=== PATIENT | male | born 1935 | race Caucasian/White ===

== ENCOUNTER 2016-10-20 12:03 | Day surgery (SDC) | payer OTHER, MEDICARE ==
[~2016-10-20] VITALS: Ht 167.6 cm; Wt 79.8 kg
[~2016-10-20 12:03] MED LIST: AMOXICILLIN500 MG PO; ASCORBIC ACID500 M3 PO; ASPIR-LOW81 MG PO; ASPIRIN325 MG PO; ATENOLOL100 MG PO; BENICAR HCT 401 EACH PO; BRILINTA90 MG PO; DIOVAN HCT 31 TABLET PO; GLUCOPHAGE1000 MG PO; GLUCOTROL XL10 MG PO; HYDROCODON-ACE1 EA11 PO; METFORMIN HCL1000 MG PO; MULTIVITAMIN1 EAC2 PO; NITROSTAT0.4 MG SL; TENORMIN100 MG PO; VALIUM5 MG PO
[2016-10-20 12:48] LABS: POINT-OF-CARE METER ID UU13113694
[2016-10-20 12:58] VITALS: BP 181/83
[2016-10-20] MEDS ORDERED: NORCO 5/3251 TABLET PO (17:16)
[2016-10-20 18:06] LABS: POINT-OF-CARE METER ID UU13113675
[2016-10-20 18:27] VITALS: BP 181/77
[2016-10-20 19:26] VITALS: BP 170/76
== END 2016-10-20 19:40 | disposition home or self-care (01) ==
LOC: SDC 12:03
PROVIDERS: Surgery
PROC: 0JBF0ZZ Excision of Left Upper Arm Subcutaneous Tissue and Fascia, Open Approach (ICD-10-PCS; principal; 2016-10-20)
DX: C79.89 Secondary malignant neoplasm of other specified sites (principal); Z85.828 Personal history of other malignant neoplasm of skin; E11.9 Type 2 diabetes mellitus without complications; I25.10 Atherosclerotic heart disease of native coronary artery without angina pectoris; I25.2 Old myocardial infarction; I10 Essential (primary) hypertension; Z95.1 Presence of aortocoronary bypass graft; Z95.5 Presence of coronary angioplasty implant and graft; Z79.82 Long term (current) use of aspirin; Z79.84 Long term (current) use of oral hypoglycemic drugs; Z87.891 Personal history of nicotine dependence
CPT/HCPCS: 82948; 87070; 87075; 87205; 88305; J0690; J1100; J1170; J2405; J3010

== ENCOUNTER → 2017-01-28 | Outpatient (CLI) | payer MEDICARE ==
[~2017-01-28] MED LIST changes: +NORCO 5/3251 TABLET PO; +NORVASC5 MG PO
== END | disposition home or self-care (01) ==
LOC: CDC 11:29
DX: Z01.810 Encounter for preprocedural cardiovascular examination (principal); I44.0 Atrioventricular block, first degree; I49.1 Atrial premature depolarization; R94.31 Abnormal electrocardiogram [ECG] [EKG]; R22.32 Localized swelling, mass and lump, left upper limb
CPT/HCPCS: 93000

== ENCOUNTER 2017-02-04 08:09 | Day surgery (SDC) | payer OTHER, MEDICARE ==
[~2017-02-04] VITALS: Ht 167.6 cm; Wt 80.9 kg
[2017-02-04 08:44] VITALS: BP 166/74
[2017-02-04 09:18] LABS: POINT-OF-CARE METER ID UU14174212
[2017-02-04] MEDS ORDERED: NORCO 5/3251 TABLET PO (09:59)
[2017-02-04 10:16] LABS: POINT-OF-CARE METER ID UU13113675
[2017-02-04 10:25] VITALS: BP 121/54
[2017-02-04 11:05] VITALS: BP 140/52
== END 2017-02-04 11:15 | disposition home or self-care (01) ==
LOC: SDC 08:09
PROVIDERS: Surgery
DX: C44.629 Squamous cell carcinoma of skin of left upper limb, including shoulder (principal); I25.10 Atherosclerotic heart disease of native coronary artery without angina pectoris; E11.9 Type 2 diabetes mellitus without complications; I10 Essential (primary) hypertension; I25.2 Old myocardial infarction; Z79.82 Long term (current) use of aspirin; Z79.84 Long term (current) use of oral hypoglycemic drugs; Z95.1 Presence of aortocoronary bypass graft; Z87.891 Personal history of nicotine dependence; Z88.2 Allergy status to sulfonamides
CPT/HCPCS: 82948; 88305; J0690; J2405; J3010

== ENCOUNTER → 2017-04-10 | Outpatient (CLI) | payer OTHER, MEDICARE ==
[2017-04-10 09:28] LABS: PTT 28.6 SEC (25-37)
== END | disposition home or self-care (01) ==
LOC: OPR 04-08 08:00 → EDSTATUS 08:00 → OPR 08:00
PROVIDERS: Internal Medicine
DX: C44.529 Squamous cell carcinoma of skin of other part of trunk (principal); I25.10 Atherosclerotic heart disease of native coronary artery without angina pectoris; E11.9 Type 2 diabetes mellitus without complications; I10 Essential (primary) hypertension; I25.2 Old myocardial infarction; Z95.1 Presence of aortocoronary bypass graft; Z79.84 Long term (current) use of oral hypoglycemic drugs; Z88.2 Allergy status to sulfonamides
CPT/HCPCS: 77012; 82948; 85610; 85730; 88160; 88305; J3010